=== PATIENT | female | born 1945 ===

== ENCOUNTER 2021-10-13 07:00 | Inpatient (IN) | payer OTHER ==
[~2021-10-13] VITALS: Ht 160 cm; Wt 90.7 kg
[2021-10-13] MEDS ORDERED: TOPROL XL100 M1 PO (08:48)
[2021-10-13] MEDS ORDERED: COZAAR50 MG PO (08:48)
[2021-10-13] MEDS ORDERED: RESTORIL30 M1 PO (08:49)
[2021-10-13] MEDS ORDERED: CHILDREN'S ASPI81 MG PO (08:49)
[2021-10-13] MEDS ORDERED: CRESTOR40 MG PO (08:49)
[2021-10-13] MEDS ORDERED: SYNTHROID100 MCG PO (08:50)
[2021-10-13] MEDS ORDERED: VITAMIN D PO (08:50)
[2021-10-13] MEDS ORDERED: GABAPENT PO (08:50)
[2021-10-20] MEDS ORDERED: GABAPENTIN400 MG (08:39)
[2021-10-20] MEDS ORDERED: PANTOPRAZOLE SO40 MG (08:39)
[2021-10-20] MEDS ORDERED: VITAMIN D310 MC4 (08:39)
[2021-10-20] MEDS ORDERED: ALENDRONATE SOD35 MG (08:39)
== END 2021-10-21 17:09 | DRG 470 ==
LOC: SURH 10-19 06:30 → O/R 10-19 06:30 → SURH 10-19 07:00
PROVIDERS: ADMIT Orthopaedic Surgery; ATTEND Orthopaedic Surgery
PROC: 0SRC0J9 Replacement of Right Knee Joint with Synthetic Substitute, Cemented, Open Approach (ICD-10-PCS; principal; 2021-10-19 07:00)
DX: M17.11 Unilateral primary osteoarthritis, right knee (principal); D62 Acute posthemorrhagic anemia; E66.8 Other obesity; Z68.35 Body mass index [BMI] 35.0-35.9, adult; E03.9 Hypothyroidism, unspecified; M85.861 Other specified disorders of bone density and structure, right lower leg; K21.9 Gastro-esophageal reflux disease without esophagitis